=== PATIENT | male | born 1955 | race African-American/Black ===

== ENCOUNTER 2024-01-27 12:09 | Emergency (ER) | payer MEDICARE, SELFPAY ==
[2024-01-27 12:12] VITALS: BP 158/90; PULSE 91; RESP 18; TEMP 36.7; O2SAT 100
--- NOTE | 2024-01-27 12:29 | ED.GENADULT ---
HPI - General Adult General Chief complaint: Anxiety Stated complaint: ANXIETY Time Seen by Provider: 01/27/24 12:21 History of Present Illness HPI narrative: This is a 60-year-old male history anxiety and daily opiate use presenting for concerns about serotonin syndrome. He was started on Paxil 3 days ago for anxiety. However he read about serotonin syndrome on the Internet and is concerned he may have the symptoms. Patient's main symptom is increased anxiety. He has not had any altered mental status, fevers, clonus, muscle pain or rigidity. Patient denies headaches, fevers chills nausea vomiting diarrhea chest pain breathing abdominal pain. Related Data Allergies Allergy/AdvReac Type Severity Reaction Status Date / Time No Known Allergies Allergy Unverified 12/01/14 16:16 Exam Narrative: APPEARANCE: Patient appears anxious, Head: atraumatic. EYES: EOMI, NOSE: Atraumatic NECK: Trachea midline RESPIRATORY: No increased rate of breathing clear to auscultation CARDIOVASCULAR: RRR, no peripheral edema ABDOMINAL: Non-distended MUSCULOSKELETAl: No obvious deformities NEURO: Alert. Moving 4/4 extremities no inducible clonus or muscle rigidity SKIN:: Warm, dry. Normal color, no diaphoresis PSYCHIATRIC: Normal affect Course Vital Signs Vital signs: Vital Signs Temperature 98.0 F 01/27/24 12:12 Pulse Rate 91 01/27/24 12:12 Respiratory Rate 18 01/27/24 12:12 Blood Pressure 158/90 H 01/27/24 12:12 Pulse Oximetry 100 01/27/24 12:12 Oxygen Delivery Room Air 01/27/24 12:12 Temperature 98.0 F 01/27/24 12:12 Pulse Rate 91 01/27/24 12:12 Respiratory Rate 18 01/27/24 12:12 Blood Pressure 158/90 H 01/27/24 12:12 Pulse Oximetry 100 01/27/24 12:12 Oxygen Delivery Room Air 01/27/24 12:[address] [facility] Narrative Medical decision making narrative: -Course: 68-year-old male presenting with concerns about serotonin syndrome. Patient appears anxious. He is not febrile. He does not have any muscle rigidity or inducible clonus. No hyperactivity. He has normal vital signs. Symptoms more consistent with anxiety as opposed to serotonin syndrome. 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 He was instructed to discontinue his Paxil until evaluated by his PCP. Given return precautions. -DDX includes but is not limited to: Anxiety, serotonin syndrome, neuroleptic malignant syndrome, opiate withdrawal, polysubstance use disorder -Co-morbidities complicating care: Chronic opiate use, anxiety -Social determinants of health: , daily opiate use -Interventions: Valium 5 mg -Shared decision making / Disposition: Discharged Vital Signs Vital Signs: Vital Signs Temperature 98.0 F 01/27/24 12:12 Pulse Rate 91 01/27/24 12:12 Respiratory Rate 18 01/27/24 12:12 Blood Pressure 158/90 H 01/27/24 12:12 Pulse Oximetry 100 01/27/24 12:12 Oxygen Delivery Room Air 01/27/24 12:12 Temperature 98.0 F 01/27/24 12:12 Pulse Rate 91 01/27/24 12:12 Respiratory Rate 18 01/27/24 12:12 Blood Pressure 158/90 H 01/27/24 12:12 Pulse Oximetry 100 01/27/24 12:12 Oxygen Delivery Room Air 01/27/24 12:12 Discharge Plan Discharge Clinical Impression: Acute anxiety Patient Disposition: Home, Self-Care Condition: Stable Instructions: Antibiotic Form, Anxiety (ED) Additional Instructions: Please discontinue your Paxil. Please follow-up with your primary care physician. Return if you develop confusion, fevers, or feel like your condition is getting worse. Follow-up/Referrals: PHYSICIAN NOT ON STAFF,NONSTAFF [Primary Care Provider] -
[2024-01-27] MEDS: diazePAM (*CRX) 5 MG TABLET PO (12:44)
== END 2024-01-27 12:25 | disposition home or self-care (01) ==
PROVIDERS: Emergency Provider Emergency Medicine
DX: F41.9 Anxiety disorder, unspecified (principal)
CPT/HCPCS: 99283; A9270